=== PATIENT | male | born 1985 | race Asian ===

== ENCOUNTER 2021-07-17 09:49 | Emergency (ER) | payer BC ==
[~2021-07-17] VITALS: Ht 175.3 cm; Wt 100.0 kg
[2021-07-17 10:06] VITALS: BP 146/100
== END 2021-07-17 13:00 | disposition home or self-care (01) ==
LOC: ER 10:26
DX: S63.592A Other specified sprain of left wrist, initial encounter (principal); F32.9 Major depressive disorder, single episode, unspecified; V13.4XXA Pedal cycle driver injured in collision with car, pick-up truck or van in traffic accident, initial encounter; Y93.89 Activity, other specified; Y92.488 Other paved roadways as the place of occurrence of the external cause
CPT/HCPCS: 73110; 99283